=== PATIENT | male | born 1950 | race Two or more races ===

== ENCOUNTER 2023-09-02 08:23 | Emergency (ER) | payer OTHER ==
[~2023-09-02] VITALS: Ht 177.8 cm; Wt 85.8 kg
[2023-09-02 08:59] LABS: Basophils # (auto) 0 10 ^3/uL (0-0.2); Basophils % (auto) 0.2 % (0.0-2.0); Eosinophils # (auto) 0 10 ^3/uL (0-0.8); Hematocrit 48.9 % (41.0-53.0); Hemoglobin 16.5 g/dL (13.5-17.5); Lymphocytes # (auto) 1.1 10 ^3/uL (0.4-5.4); Lymphocytes % (auto) 17.2 % (10.0-50.0); Mean Corpuscular Hemoglobin 29.2 pg (28.0-32.0); Mean Corpuscular Hgb Conc. 33.6 g/dL (32.0-36.0); Mean Corpuscular Volume 86.9 fL (80.0-100.0); Monocytes # (auto) 0.6 10 ^3/uL (0-1.3); Monocytes % (auto) 9.9 % (0.0-12.0); Neutrophils # (auto) 4.7 10 ^3/uL (1.6-8.6); Neutrophils % (auto) 72.7 % (37.0-80.0); Nucleated Red Blood Cells % 0.3 %; Red Blood Cells 5.63 10^6/uL (4.5-5.90); White Blood Cell 6.5 10^3/uL (4.4-10.8)
[2023-09-02 09:15] LABS: Alanine Aminotransferase 19 U/L (7-40); Albumin 4.7 g/dL (3.2-4.8); Alkaline Phosphatase 80 U/L (46-116); Anion Gap 8 (5-15); Aspartate Aminotransferase 10 U/L (13-40); BUN/Creatinine Ratio 13.7 (10.0-20.0); Blood Urea Nitrogen 13 mg/dL (9-23); Calcium 9.1 mg/dL (8.7-10.4); Carbon Dioxide 28 mmol/L (20-30); Chloride 98 mmol/L (98-107); Glucose 176 mg/dL (74-106); Lipase 40 U/L (12-53); Potassium 3.9 mmol/L (3.5-5.1); Sodium 134 mmol/L (136-145)
[2023-09-02 09:16] LABS: Bilirubin, Total 1.1 mg/dL (0.2-1.0); Total Protein 7.8 g/dL (5.7-8.2)
[2023-09-02 09:40] LABS: Urine Bacteria NONE SEEN /hpf (None Seen); Urine Blood Negative /uL (Negative); Urine Clarity Clear (Clear); Urine Color Yellow (Yellow); Urine Mucus FEW (None Seen); Urine Protein, UAD 1+ (Negative); Urine Specific Gravity 1.024 (1.001-1.035); Urine Urobilinogen Normal (Negative); Urine WBC 1 /hpf (0 - 3); Urine pH 5.5 (5.0-8.0)
[2023-09-02] MEDS ORDERED: ONDANSETRON ODT 4 MG TAB PO ONE (10:15)
[2023-09-02] MEDS ORDERED: DICYCLOMINE HCL (10MG/ML) 2 ML AMPULE IM ONE (10:15)
[2023-09-02] MEDS ORDERED: METR375C PO (10:57)
[2023-09-02] MEDS ORDERED: ZOFR4T PO (10:57)
[2023-09-02] MEDS ORDERED: CIPR-173 PO (10:57)
[2023-09-02 11:40] VITALS: BP 150/79; PULSE 81; RESP 19; TEMP 98.2; O2SAT 96
== END 2023-09-02 11:46 | disposition home or self-care (01) ==
LOC: ER 08:23
DX: K57.90 Diverticulosis of intestine, part unspecified, without perforation or abscess without bleeding (principal); K57.32 Diverticulitis of large intestine without perforation or abscess without bleeding; R19.7 Diarrhea, unspecified; E11.9 Type 2 diabetes mellitus without complications
CPT/HCPCS: 36415; 74176; 80053; 81001; 83690; 84484; 85025; 93005; 96372; 99285; J0500; Q0162

== ENCOUNTER 2025-05-02 17:00 | Emergency (ER) | payer OTHER ==
[~2025-05-02] VITALS: Ht 180.3 cm; Wt 91.0 kg
[~2025-05-02 17:00] MED LIST: CIPR-173 PO; METR375C PO; ZOFR4T PO
--- NOTE | 2025-05-02 18:44 | ED.PDOC ---
Back pain HPI HPI Comments PT STATES HE HAS SCIATICA' BILATERAL LOWER BACK PAIN RADIATES DOWN BOTH LEGS SINCE MONDAY NO INJURY, HOWEVER PATIENT STATES NEW ONSET OF PAIN IN THE RIGHT SIDE DOWN RIGHT LEG HE NOTES 10/10 ON PAIN SCALE SHARP SHOOTING PAIN BILATERAL LOWER BACK INTO BILATERAL POSTERIOR LEGS. STATES HAS BEEN TAKING EXCEDRIN AT HOME WITH LITTLE RELIEF WHICH USUALLY RESOLVES HIS PAIN. STATES UNABLE TO WALK DUE TO THE SEVERITY OF HIS PAIN. DENIES LOSS OF BOWEL BLADDER CONTROL, SADDLE ANESTHESIA, FOOT DROP, FEVER OR CHILLS, OR NO NEW INJURY. Chief Complaint: Back Pain Time Seen by MD: 17:53 Reviewed Notes: Nurses Notes, Medications, Allergies Allergies: Coded Allergies: NO KNOWN ALLERGIES (Unverified , 09/02/23) Home Meds Active Scripts Methocarbamol (Methocarbamol) 750 Mg Tab, 750 MG PO HS for 6 Days, #6 TAB Prov:DALJIT MORGAN [employer] 05/02/25 Methylprednisolone (Medrol Dosepak) 4 Mg Get, 4 MG PO UD for 6 Days, #21 TAB UAD Prov:DALJIT MORGAN 05/02/25 Ondansetron Odt 4MG Tab (ZOFRAN PO) 4 Mg Tb, 4 MG PO TID for 7 Days, #21 TAB ODT TAB-DISSOLVE IN MOUTH, THEN SWALLOW Prov:CA SEWELL MD 09/02/23 Metronidazole (Flagyl) 375 Mg Cap, 375 MG PO TID for 10 Days, #30 CAP Prov:CA SEWELL MD 09/02/23 Ciprofloxacin Hcl (Cipro) 500 Mg Tab, 1 TAB PO BID PRN for 10 Days, #20 TAB Prov:CA SEWELL MD 09/02/23 Information Source: Patient Mode of Arrival: Wheelchair Past Medical History PAST MEDICAL HISTORY: DM Surgical History: Denies all surgeries Family History Family History: Reviewed,noncontributory to illness, No family hx of Cancer, No family hx of DM, No family hx of Heart ben, No family hx of HTN, No family hx ofKidney ben, No family hx of Liver ben, No family hx of Lung ben, No family hx of Stroke Social History Smoker: Non-Smoker Alcohol: Denies ETOH Use Drugs: Denies Drug Use Lives In: Home All Other Systems: Reviewed and Negative (SEE HPI) Physical Exam General Appearance: No Apparent Distress, Normal HEENT: Pharynx Normal Neck: Full Range of Motion, Non-Tender Respiratory: Lungs Clear, No Respiratory Distress, Normal Breath Sounds Cardiovascular: No Edema, No JVD, No Murmur, No Gallop, Normal Peripheral Pulses, Regular Rate/Rhythm Breast Exam: Deferred Gastrointestinal: No Organomegaly, Non Tender, No Pulsatile Mass, Normal Bowel Sounds, Soft Genitalia: Deferred Pelvic: Deferred Rectal: Deferred Extremities: Normal capillary refill, No pedal edema Musculoskeletal : Location: Bilateral Extremity Location: Back (Moderate tenderness palpated over L1 through L5 without step-offs or crepitus. Moderate pain bilateral lower back musculature with noted spasms along paraspinal muscles bilateral. Positive straight leg raise bilateral following L5-S1 dermatome pattern. Strength 4/4 bilateral lower extremities. Sensation intact.) Apperance: Normal Neurologic: Alert, No Motor Deficits, Normal Affect, Normal Mood, No Sensory Deficits Cerebellar Function: Normal Reflexes: Normal, R Knee, L Knee, R Ankle, L Ankle Skin: Dry, Normal Color, Warm Lymphatic: No Adenopathy Was a procedure done? Was a procedure done?: No Back Pain Differential Dx Differential Diagnosis: Fracture, Musculoskeletal Pain X-Ray, Labs, Meds, VS Vital Signs Date Time Temp Pulse Resp B/P (MAP) Pulse Ox O2 Delivery O2 Flow Rate FiO2 05/02/25 19:28 99.1 85 18 98/44 (62) 96 99.1 05/02/25 19:28 85 18 98/44 05/02/25 19:28 85 18 96 Room Air 05/02/25 18:46 95 20 114/67 05/02/25 17:07 97.6 89 18 133/56 96 97.6 Current Medications Medications (Trade) Dose Ordered Sig/Anish Route Start Time Stop Time Status Last Admin Morphine Sulfate 4 mg ONCE ONCE IM 05/02/25 18:30 05/02/25 18:31 DC 05/02/25 18:46 Ketorolac Tromethamine (Toradol Injection) 30 mg ONCE ONCE IM 05/02/25 18:30 05/02/25 18:31 DC 05/02/25 18:47 Dexamethasone Sodium Phosphate (Decadron Injection) 10 mg ONCE ONCE IM 05/02/25 18:30 05/02/25 18:31 DC 05/02/25 18:46 X-Ray, Labs, Meds, VS Comment FINDINGS: No CT evidence of definite acute fracture, spinal dislocation, or significant appearing acute subluxation is seen. The visualized paraspinal soft tissues are grossly unremarkable. T12-L1 There is no evidence of central spinal canal or neuroforaminal stenosis. L1-L2 There is no evidence of central spinal canal or neuroforaminal stenosis. L2-L3 There is no evidence of central spinal canal or neuroforaminal stenosis. L3-L4 diffuse annular bulging disc at L3-4 total opacification of the left neural foramen by bulging disc. L4-L5 diffuse annular bulging at L4-5. Disc material is occupying the right and left neural foramen at L4-5. L5-S1 12 mm protruding disc of the thecal sac left L5-S1. IMPRESSION: 1. No definite CT evidence of acute fracture or dislocation of the bony lumbar spine. 2. Diffuse annular bulging of the disks as described above. 3. Involvement of levels L3 through S1. Patient given morphine 4 mg IM, Decadron 10 mg IM, Toradol 30 mg IM. Patient reports moderate improvement able to walk on his own requesting discharge at this time. CT lumbar spine shows no acute findings. Advised to rest, script trial of Medrol dose Dosepak along with muscle relaxer. Advised patient to return to the ER for increasing pain, numbness, weakness, saddle anesthesia, loss of bowel bladder control. Patient was advised call his PCP in two days and schedule follow up appointment consider referral to pain management if symptoms persist and a repeat MRI. Patient indicates understanding and agrees with discharge plan of care. Time of 1ST Reevaluation: 18:00 Reevaluation 1ST: Unchanged Time of 2ND Reevaluation: 20:33 Reevaluation 2ND: Improved Patient Education/Counseling: Diagnosis, Treatment, Prognosis, Need For Follow Up Family Education/Counseling: Diagnosis, Treatment, Prognosis, Need For Follow Up SEPSIS Sepsis Screen Date sepsis recognized/suspect: May 02, 2025 Time Sepsis recognized/suspect: 1699 Recent Procedure: No On Antibiotic Therapy: No Respiratory Rate >20: No Heart Rate >90: No Temp<36 C (96.8 F) or >38.3 C: No SBP <90 or MAP <65 mmHG: No New Acute Mental Status Change: No Is the patient on CPAP, BIPAP,: No Physician Orders Ls Spine Wo Contrast (05/02/25 18:29) Vital Signs Date Time Temp Pulse Resp B/P (MAP) Pulse Ox O2 Delivery O2 Flow Rate FiO2 05/02/25 19:28 99.1 85 18 98/44 (62) 96 99.1 05/02/25 19:28 85 18 98/44 05/02/25 19:28 85 18 96 Room Air 05/02/25 18:46 95 20 114/67 05/02/25 17:07 97.6 89 18 133/56 96 97.6 Medications Medications Dose Ordered Sig/Anish Route Start Time Stop Time Status Last Admin Dose Admin Dexamethasone Sodium Phosphate 10 mg ONCE ONCE IM 05/02/25 18:30 05/02/25 18:31 DC 05/02/25 18:46 Ketorolac Tromethamine 30 mg ONCE ONCE IM 05/02/25 18:30 05/02/25 18:31 DC 05/02/25 18:47 Morphine Sulfate 4 mg ONCE ONCE IM 05/02/25 18:30 05/02/25 18:31 DC 05/02/25 18:46 Departure 1 Departure Time of Disposition: 20:25 Impression: Primary Impression: Lumbar radiculopathy Additional Impression: Lumbar sprain Qualified Codes: S33.5XXA - Sprain of ligaments of lumbar spine, initial encounter Disposition: HOME / SELF CARE / HOMELESS Condition: Stable e-Prescriptions Methocarbamol (Methocarbamol) 750 Mg Tab 750 MG PO HS for 6 Days, #6 TAB Prov: DALJIT MORGAN 05/02/25 Methylprednisolone (Medrol Dosepak) 4 Mg Get 4 MG PO UD for 6 Days, #21 TAB UAD Prov: DALJIT MORGAN 05/02/25 Discharged With: Friend Critical Care Note Critical Care Time?: No Stability Stability form required: No DALJIT MORGAN May 02, 2025 18:44
[2025-05-02] MEDS: MORPHINE SULFATE 4 MG/ML SYR/VIAL IM ONE (18:46)
[2025-05-02] MEDS: KETOROLAC TROMETH 60MG/2ML VIAL IM ONE (18:47)
[2025-05-02 19:28] VITALS: BP 98/44; PULSE 85; RESP 18; TEMP 99.1; O2SAT 96
--- NOTE | 2025-05-02 20:18 | DVH ---
CT LS SPINE WO CONTRAST Date: 05/02/2025 06:54 PM History: severe bilateral radiculopathy Comparison: None TECHNIQUE: Multiple axial CT images of the lumbosacral spine were obtained using bone algorithm. Axial and coron al reformatting was done. Bone and soft tissue windows were reviewed. Radiation Dose Information: CT Dose: CTDI volume is 31.66 mGy. Dose-length product is 1045.79 mGy*cm FINDINGS: No CT evidence of definite acute fracture, spinal dislocation, or significant appearing acute subluxa tion is seen. The visualized paraspinal soft tissues are grossly unremarkable. T12-L1 There is no evidence of central spinal canal or neuroforaminal stenosis. L1-L2 There is no evidence of central spinal canal or neuroforaminal stenosis. L2-L3 There is no evidence of central spinal canal or neuroforaminal stenosis. L3-L4 diffuse annular bulging disc at L3-4 total opacification of the left neural foramen by bulging disc. L4-L5 diffuse annular bulging at L4-5. Disc material is occupying the right and left neural foramen at L4-5. L5-S1 12 mm protruding disc of the thecal sac left L5-S1. IMPRESSION: 1. No definite CT evidence of acute fracture or dislocation of the bony lumbar spine. 2. Diffuse annular bulging of the disks as described above. 3. Involvement of levels L3 through S1.
[2025-05-02] MEDS ORDERED: METH4PAK PO (20:26)
[2025-05-02] MEDS ORDERED: METH-1182 PO (20:26)
== END 2025-05-02 20:43 | disposition home or self-care (01) ==
LOC: ER 17:05
DX: S33.5XXA Sprain of ligaments of lumbar spine, initial encounter (principal); M54.16 Radiculopathy, lumbar region; E11.9 Type 2 diabetes mellitus without complications; Z79.899 Other long term (current) drug therapy; X58.XXXA Exposure to other specified factors, initial encounter; Y93.89 Activity, other specified; Y92.89 Other specified places as the place of occurrence of the external cause; Y99.8 Other external cause status
CPT/HCPCS: 72131; 96372; 99285; J1100; J1885; J2270